=== PATIENT | male | born 1965 | race African-American/Black ===

== ENCOUNTER 2021-10-10 11:48 | Emergency (ER) | payer BC, SELFPAY ==
[2021-10-10] VITALS (28 sets, daily range): BP systolic 81–132; BP diastolic 29–96; PULSE 81–108; RESP 16–32; TEMP 36.4–37.2; O2SAT 89–100
--- NOTE | ~2021-10-10 | CT_ITS ---
EXAMINATION: CT brain wo con DATE: 10/10/2021 12:57 INDICATION: Syncope. Dizziness. TECHNIQUE: Computed tomography (CT) of the head was performed without intravenous contrast. The mA wa s adjusted according to patient size. Iterative reconstruction technique was employed. The dose-lengt h product was 605.33 mGy-cm. COMPARISON: None FINDINGS: There is no intracranial hemorrhage, acute infarction, or abnormal intracranial mass lesion . The ventricles are normal in size. There is mild mucosal thickening in the paranasal sinuses. The o rbits are normal. The mastoid air cells are normal. There is a posterior scalp hematoma. IMPRESSION: 1. Normal brain. Reviewed, dictated and finalized at location A. LE PASS SOIL STABILIZER OPERATOR IMPRESSION: 1. Normal brain.
--- NOTE | ~2021-10-10 | CT_ITS ---
EXAMINATION: CTA chest PE abdomen pel DATE: 10/10/2021 12:57 INDICATION: Chest pain. Syncope. Shortness of breath. TECHNIQUE: Computed tomography angiography (CTA) of the chest was performed with 100 mL Omnipaque-350 intravenous contrast timed to evaluate the pulmonary arteries. Coronal maximum intensity projection 3D-reconstructions were created by the technologist. Computed tomography (CT) of the abdomen and pelv is was performed with intravenous contrast. Automated exposure control and iterative reconstruction t echnique were employed. The dose-length product was 1802.69 mGy-cm. COMPARISON: None. FINDINGS: CTA chest: There are scattered mild groundglass opacities in all lobes. No pleural effusion. The hear t demonstrates right ventricular enlargement, consistent with right heart strain. No pericardial effu martita. There are extensive acute pulmonary emboli in all lobes including in the distal right and left main pulmonary arteries. There is mild thoracic spondylosis. CT abdomen and pelvis: The liver, gallbladder, spleen, pancreas, adrenal glands, and left kidney are normal. There is a 4 mm stone in right kidney. There are no dilated loops of bowel. The appendix is n ormal. There are no pathologically enlarged lymph nodes. There is no free intraperitoneal fluid. 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 IMPRESSION: 1. Extensive acute bilateral pulmonary emboli with right heart strain. I called this result to Dr. Josemanuel muro. 2. Scattered mild groundglass opacities in all lobes, consistent with mild pulmonary edema versus inf lammation. Reviewed, dictated and finalized at location A. EATION PROGRAMMER IMPRESSION: 1. Extensive acute bilateral pulmonary emboli with right heart strain. I called this result to Dr. Jaquez. 2. Scattered mild groundglass opacities in all lobes, consistent with mild pulm onary edema versus inflammation.
--- NOTE | ~2021-10-10 | XR_ITS ---
EXAMINATION: XR chest 2V EXAM DATE: 10/10/2021 12:11 INDICATION: Centralized chest pain, dizziness. TECHNIQUE: Frontal and lateral projections of the chest obtained and reviewed. There is no prior benigno dy for comparison. FINDINGS: The lungs are clear. There are no pleural effusions. The cardiomediastinal silhouette is within normal limits. There is no pneumothorax suspected. The bones and soft tissues are unremarkab le. IMPRESSION: No acute cardiopulmonary findings. Reviewed, dictated and finalized at location B. R HELPER
--- NOTE | 2021-10-10 11:54 | ECG_ITS ---
Measurements Intervals [place] Rate: 107 P: 67 IL: 152 QRS: 120 QRSD: 136 T: -60 QT: 406 QTc: 543 Interpretive Statements SINUS TACHYCARDIA RIGHT BUNDLE BRANCH BLOCK [120+ ms QRS DURATION, UPRIGHT V1, 40+ ms S IN I/aVL/V4/V5/V6] LEFT POSTERIOR FASCICULAR BLOCK [QRS AXIS > 109, INFERIOR Q] MODERATE T-WAVE ABNORMALITY, CONSIDER INFERIOR ISCHEMIA [-0.1+ mV T WAVE IN II/aVF] ABNORMAL ECG NO PREVIOUS ECG AVAILABLE FOR COMPARISON Electronically Signed On 10-10-2021 15:26:35 RESPITE COORDINATOR by Jonah Lopez M.D.
[2021-10-10 12:08] LABS: Basophils Percent Auto 0.5 % (0.2-1.2); Eosinophils Percent Auto 0.6 % (0-4.4); Hematocrit 50.4 % (42.0-52.0); Hemoglobin 16.5 g/dL (14.0-18.0); Immature Granulocyte Absolute 0.02 K/mm3 (0.00-0.031); Immature Granulocyte Percent A 0.3 % (0-0.5); Lymphocytes Absolute Auto 1.61 K/mm3 (0.9-3.2); Lymphocytes Percent Auto 24.2 % (18.3-44.2); Mean Corpuscular HGB Conc 32.7 g/dl (32-36); Mean Corpuscular Hemoglobin 27.5 pg (26-34); Mean Platelet Volume 10.1 fl (7.4-10.4); Monocytes Absolute Auto 0.6 K/mm3 (0.1-0.6); Monocytes Percent Auto 8.4 % (2.6-8.5); Neutrophils Absolute Auto 4.4 K/mm3 (1.3-6.7); Platelet Count Result 173 k/mm3 (150-375); Red Cell Distribution Width 13.5 % (11.5-14.5); White Blood Count 6.7 K/mm3 (4.5-10.0)
[2021-10-10 12:17] LABS: Prothrombin Time 12.9 Seconds (11.1-14.7)
[2021-10-10 12:18] LABS: Alanine Aminotransferase 31 U/L (4-50); Albumin Level 4.1 g/dL (3.5-5.1); Alkaline Phosphatase 138 U/L (38-126); Anion Gap 9 mmol/L (8-16); Aspartate Amino Transferase 44 U/L (17-59); Bilirubin,Total 0.8 mg/dL (0.2-1.3); Blood Urea Nitrogen 14 mg/dL (9-20); Calcium 9.1 mg/dL (8.4-10.2); Carbon Dioxide 24 mmol/L (22-30); Chloride 113 mmol/L (98-107); Estimated Glomerular Filt Rate > 60; Glucose 135 mg/dL (65-110); Lipase 55 U/L (23-300); Partial Thromboplastin Time 24.7 SECONDS (22.3-36.8); Sodium 146 mmol/L (137-145)
[2021-10-10] MEDS: LACTATED RINGERS 1,000 ML 999 ML IV CONT (12:38)
[2021-10-10] MEDS: MORPHINE SULFATE (*CRX) 4 MG/ML INJ IV PUSH (12:39)
[2021-10-10] MEDS: ONDANSETRON INJ 4 MG/2 ML VIAL IV PUSH (12:39)
[2021-10-10 12:42] LABS: Troponin I 0.059 ng/mL (0.000-0.034)
--- NOTE | 2021-10-10 13:08 | PC.NURSE ---
Room air 02 sat 88% after Morphine. 02 applied.
--- NOTE | 2021-10-10 13:11 | ED.CHESTPAIN ---
HPI - Chest Pain General Chief Complaint: Chest Pain Stated Complaint: chest pressure, dyspnea, syncope Time Seen by Provider: 10/10/21 11:57 Source: patient, family and RN notes reviewed Mode of arrival: EMS Limitations: no limitations History of Present Illness HPI narrative: This is a 55 year old of male previously healthy who presents for evaluation of chest pain and syncope. Patient developed left chest pain that radiates to his back on . He describes his pain as intermittent pressure. He states he has pain with exertion and it has been increasing in frequency. He is also having associated shortness of breath and diaphoresis with his pain. He developed worsening pain this morning at 630 am and it has been constant. Just prior to arrival to ER, he reports having syncopal episode after walking to bathroom. He states he was leaving the bathroom, and he became lightheaded, diaphoretic, and shortness of breath. His states he made it to the bed and he slid off. She states he did not hit his head. Patient also reports his heart has been racing since . He denies history PE, DVT or heart disease. They drove to located within [facility] from [place] for a on Thursday. He denies leg swelling or calf pain. Related Data Home Medications Medication Instructions Recorded Confirmed No Home Medications 10/10/21 10/10/21 Allergies Allergy/AdvReac Type Severity Reaction Status Date / Time No Known Allergies Allergy Verified 10/10/21 11:55 Review of Systems Review of Systems: All systems reviewed & are unremarkable except as noted in HPI and below Constitutional: Constitutional: Denies chills, Denies fever(s) and Reports weakness ENT: Denies nasal congestion and Denies sore throat Cardiovascular: Cardiovascular: Reports chest pain, Reports rapid heart rate and Reports radiating jaw, neck or arm pain Respiratory: Respiratory: Reports dyspnea Gastrointestinal: Gastrointestinal: Reports abdominal pain, Reports diarrhea, Denies nausea and Denies vomiting Genitourinary: Genitourinary: Denies hematuria Musculoskeletal: Musculoskeletal: Reports back pain Neurologic: Denies headache(s) [facility] Past Medical History Medical History (Updated 10/10/21 @ 17:45 by Cheryl Jaquez MD) Patient denies medical problems Surgical History Surgical History (Updated 10/10/21 @ 14:26 by Cheryl Jaquez MD) No pertinent past surgical history Social History Social History (Updated 10/10/21 @ 14:27 by Cheryl Jaquez MD) Smoking status: Never smoker Alcohol use details: rarely Substance use: never Exam Const: General: alert and ill appearing Orientation/consciousness: patient oriented x3 HENMT: Head: normocephalic and atraumatic Face and sinus: face symmetric Mouth: Yes Normal oral and palatal mucosa present, Yes lip normal, Yes tongue normal, Yes oropharynx normal and Yes moist mucous membranes Eyes: Pupils: Equal, round and reactive pupils present EOM: EOMs intact bilaterally Chest: Chest palpation & inspection: normal inspection of the chest Resp: Effort & Inspection: normal respiratory effort and no retractions Auscultation: clear to auscultation bilaterally Cardio: Rate: tachycardic Rhythm: regular rhythm Heart sounds: no murmurs GI: GI Palp: Yes Soft to palpation, Yes Tenderness to palpation present (GI) (LLQ), No Guarding due to palpation present (GI) and No Rigid due to palpation Auscultation: normal bowel sounds Skin: General skin exam: normal color Rashes: no rashes Neuro: General: patient oriented x3, moves all extremities and CN's II-XI intact bilaterally Psych: Mental Status: mental status grossly normal Affect: normal affect Course Reevaluation(s) Reevaluation #1: [facility] states IR reports patient is good candidate for further evaluation. He has been accepts to [place] [facility]. PAtient understands he has been accepted for transfer. He is on heparin drip. vital
[2021-10-10 13:22] LABS: NT Pro B Type Natriuretic Pept 2580 pg/mL (5-100)
[2021-10-10 13:46] LABS: SARS-CoV-2 RNA PCR Negative
[2021-10-10] MEDS: HEPARIN SODIUM 5,000 UNITS/ML VIAL 7000 UNITS IV PUSH (14:01)
[2021-10-10] MEDS: HEPARIN SOD/D5W 100 UNITS/ML 25,000 UNITS/250 ML BAG 15 UNITS IV CONT (14:02)
[2021-10-10 15:53] LABS: Troponin I 0.099 ng/mL (0.000-0.034)
--- NOTE | 2021-10-10 16:03 | PC.NURSE ---
This Rn received call from Ela at [facility] in [facility] asking for update on Pt status along with vitals and weight. Rn provided information and was told that once a bed is avail for this patient the transfer team will then call back to [facility] for report. No other issues noted patient is stable at this time. Dr Jaquez is aware.
--- NOTE | 2021-10-10 17:52 | PC.NURSE ---
This RN called spouse Chapis Álvarez at [phone] relating to P transfer to [facility] around 2029, Per spouse she's will be meeting Pt in [facility] and request a call at the time of transfer and also once patient arrives at [facility] this RN will forward along the request.
--- NOTE | 2021-10-10 18:29 | PC.NURSE ---
RN called back to Mrs Álvarez and gave update spouse is on the way to [facility] in [facility] RN also gave room and floor number and phone number to the unite in the ICU. Spouse had no other questions at this time
== END 2021-10-10 18:30 | disposition short-term general hospital (02) ==
PROVIDERS: Emergency Medicine; Emergency Provider General Practice
DX: I26.99 Other pulmonary embolism without acute cor pulmonale (principal); Z20.822 Contact with and (suspected) exposure to COVID-19; R00.0 Tachycardia, unspecified; I45.2 Bifascicular block; R94.31 Abnormal electrocardiogram [ECG] [EKG]
CPT/HCPCS: 36415; 70450; 71046; 71275; 74177; 80053; 83690; 83880; 84484; 85025; 85610; 85730; 93005; 96361; 96374; 96375; 99291; C9803; J1644; J2270; J2405; J7120; Q9967; U0003; U0005